=== PATIENT | male | born 1930 | race Caucasian/White ===

== ENCOUNTER → 2016-11-22 | Outpatient (CLI) | payer OTHER | LOC: BHFA 10:15 | PROVIDERS: ATTEND Internal Medicine Interventional Cardiology | DX: I48.91 Unspecified atrial fibrillation (principal); I47.2 Ventricular tachycardia ==

== ENCOUNTER → 2016-12-21 | Outpatient (CLI) | payer OTHER | LOC: BHFA 10:15 | PROVIDERS: ATTEND Internal Medicine Interventional Cardiology | DX: I48.91 Unspecified atrial fibrillation (principal) ==

== ENCOUNTER → 2016-12-31 | Outpatient (CLI) | payer OTHER | LOC: BHFA 10:45 | PROVIDERS: ATTEND Internal Medicine Interventional Cardiology | DX: I48.1 Persistent atrial fibrillation (principal) ==

== ENCOUNTER 2017-01-03 06:57 | Day surgery (SDC) | payer OTHER ==
[2017-01-03] MEDS ORDERED: NS 500 ML IV ONE (07:03)
[2017-01-03] MEDS ORDERED: PROPOFOL 200 MG/20 ML VIAL IVP ONE (07:03)
[2017-01-03] MEDS ORDERED: MIDAZOLAM 2 MG/2 ML VIAL IVP ONE (07:03)
[2017-01-03] MEDS ORDERED: fentaNYL 100 MCG/2 ML INJ IVP ONE (07:03)
--- NOTE | 2017-01-03 07:25 | CPEKG ---
Heart Rate: 97 RR Interval: 619 QRSD Interval: 88 QT Interval: 380 QTC Interval: 483 QRS Stoughton: 18 T Wave Stoughton: 79 EKG Severity - ABNORMAL ECG - EKG Impression: ATRIAL FIBRILLATION -- Probable, but significant artifact interferes with EKG Impression: ability to accurately interpret. EKG Impression: LOW VOLTAGE IN FRONTAL LEADS EKG Impression: BORDERLINE PROLONGED QT INTERVAL Electronically Signed By: Manpreet Montalvo 03-Jan-2017 08:41:18
[2017-01-03 07:54] LABS: APTT 38.8 SEC (23.0-38.0); INR 2.25 (0.83-1.16); PROTIME(PATIENT) 25.1 SEC (12.0-15.0)
[2017-01-03 07:59] LABS: ANION GAP 9 mEq/L (8-16); CARBON DIOXIDE 27 mEq/l (22-31); CHLORIDE 107 mEq/L (97-110); CREATININE 1.3 mg/dL (0.7-1.3); GLOMERULAR FILTRATION RATE 53; GLUCOSE 101 mg/dL (70-100); MAGNESIUM 2.1 mg/dL (1.6-2.3); POTASSIUM 4.4 mEq/L (3.5-5.2); SODIUM 143 mEq/L (134-144)
--- NOTE | 2017-01-03 08:36 | CPEKG ---
Heart Rate: 57 RR Interval: 1053 P-R Interval: 268 QRSD Interval: 76 QT Interval: 452 QTC Interval: 440 P Maynard: 17 QRS Maynard: -39 T Wave Maynard: 59 EKG Severity - ABNORMAL ECG - EKG Impression: SINUS RHYTHM EKG Impression: ATRIAL PREMATURE COMPLEX EKG Impression: FIRST DEGREE AV BLOCK EKG Impression: LEFT AXIS DEVIATION EKG Impression: LOW VOLTAGE IN FRONTAL LEADS EKG Impression: Agree with above. Electronically Signed By: Manpreet Montalvo 03-Jan-2017 08:40:17
--- NOTE | 2017-01-03 10:43 | PDTEE1 ---
DAYSI Cardioversion Procedure Indications: Atrial Fibrillation Consent: Signed and in Chart Anticoagulation: Warfarin Procedural Details: Pads were placed in anterior-posterior position. Synchronized cardioversion attempt #1: 50J Synchronized cardioversion attempt #2: 200J Results: Normal sinus rhythm Conclusions: Successful Cardioversion Conclusion Comment: Succesful cardioversion from atrial fibrillation to sinus rhythm. Plan> Reduce amiodarone to 200 mg po daily. F/U EKG in one week. Continue anticoagulation. Patient Problems: Problems Problem Status Onset Atrial fibrillation Acute
== END 2017-01-03 10:44 | disposition home or self-care (01) ==
LOC: FCATH 06:57
PROVIDERS: ATTEND Internal Medicine Interventional Cardiology
PROC: 5A2204Z Restoration of Cardiac Rhythm, Single (ICD-10-PCS; principal; 2017-01-03)
DX: I48.1 Persistent atrial fibrillation (principal); R60.9 Edema, unspecified; I50.9 Heart failure, unspecified; E03.9 Hypothyroidism, unspecified; I47.2 Ventricular tachycardia; N40.0 Benign prostatic hyperplasia without lower urinary tract symptoms; Z79.01 Long term (current) use of anticoagulants; Z95.2 Presence of prosthetic heart valve
CPT/HCPCS: J2704

== ENCOUNTER → 2017-01-18 | Outpatient (CLI) | payer OTHER | LOC: BHFA 14:15 | PROVIDERS: ATTEND Internal Medicine Interventional Cardiology | DX: I48.91 Unspecified atrial fibrillation (principal) ==

== ENCOUNTER → 2017-03-23 | Outpatient (CLI) | payer OTHER | LOC: BHFA 11:15 | PROVIDERS: ATTEND Internal Medicine Interventional Cardiology | DX: I48.1 Persistent atrial fibrillation (principal); I35.9 Nonrheumatic aortic valve disorder, unspecified ==

== ENCOUNTER → 2017-05-25 | Outpatient (CLI) | payer OTHER | LOC: BHFA 10:45 | PROVIDERS: ATTEND Internal Medicine Interventional Cardiology | DX: I35.9 Nonrheumatic aortic valve disorder, unspecified (principal); I48.91 Unspecified atrial fibrillation; I47.2 Ventricular tachycardia ==

== ENCOUNTER → 2017-09-15 | Outpatient (CLI) | payer OTHER | LOC: FIMAGING 10:24 | PROVIDERS: ATTEND Orthopaedic Surgery | DX: M17.12 Unilateral primary osteoarthritis, left knee (principal); M25.462 Effusion, left knee ==

== ENCOUNTER 2017-09-29 09:15 | Observation (INO) | payer OTHER ==
[2017-09-30] MEDS ORDERED: TRANEXAMIC ACID 3,000 MG in NS 50 ML IRR ONE (08:42)
[2017-09-30] MEDS ORDERED: ROPIVACAINE 0.2% 80 MG, EPINEPHrine 0.2 MG, KETOROLAC TROMETHAMINE 30 MG in SYRINGE 0 ML IU ONE (08:42)
[2017-09-30] MEDS ORDERED: FAMOTIDINE 20 MG TAB PO ONE (08:42)
[2017-09-30] MEDS ORDERED: ACETAMINOPHEN 325 MG TAB PO ONE (08:42)
[2017-09-30] MEDS ORDERED: ceFAZolin 2 GM/SWFI 2 GM/20 ML SYR IVP ONE (08:42)
[2017-09-30] MEDS ORDERED: DEXAMETHASONE 4 MG/ML VIAL IVP ONE (08:42)
[2017-09-30] MEDS ORDERED: VANCOMYCIN 1 GM VIAL ONE (09:09)
[2017-09-30] MEDS ORDERED: LIDOCAINE 1% 2 ML INJ ID PRN (09:15)
[2017-09-30] MEDS ORDERED: LR 1,000 ML IV ONE (09:15)
[2017-09-30 10:24] LABS: INR 1.16 (0.83-1.16)
--- NOTE | 2017-09-30 10:25 | PDHPUP ---
History & Physical Update H&P update statement: This history and physical update is based on an assessment of the patient which was completed after admission or registration (within 24 hours), but prior to the surgery/procedure. H&P update: H&P reviewed & patient examined, no change in patient's condition since H&P completed
--- NOTE | 2017-09-30 10:51 | PDANEPAE ---
ANE History of Present Illness left knee oa ANE Past Medical History - Cardiovascular History Hx Hypertension: No Hx Arrhythmias: Yes Hx Chest Pain: No Hx Coronary Artery / Peripheral Vascular Disease: No Hx CHF / Valvular Disease: Yes Hx Palpitations: No Cardiovascular History Comment: hx of svt. afib. chf. edema. aortic valve disease. hx of AVR - Pulmonary History Hx COPD: No Hx Asthma/Reactive Airway Disease: No Hx Recent Upper Respiratory Infection: No Hx Oxygen in Use at Home: No Hx Sleep Apnea: No Sleep Apnea Screening Result - Last Documented: Negative - Neurologic History Hx Cerebrovascular Accident: Yes Hx Seizures: No Hx Dementia: No - Endocrine History Hx Diabetes: No Endocrine History Comment: hx of hypothyroidism. hx of thyroid nodule resection - Renal History Hx Renal Disorders: Yes Renal History Comment: bph - Liver History Hx Hepatic Disorders: No - Neurological & Psychiatric Hx Hx Neurological and Psychiatric Disorders: No - Cancer History Hx Cancer: Yes Cancer History Comment: prostate. melanoma - Congenital Disorder History Hx Congenital Disorders: No - GI History Hx Gastrointestinal Disorders: No - Other Health History Other Health History: wears reading glasses. wears bilateral hearing aides - Chronic Pain History Chronic Pain: Yes (right hip and left knee) - Surgical History Prior Surgeries: goiter surgery. cardioversion 01/03/17. AVR and aneurysm repair. caridad. appy. tonsillectomy. thyroid nodule resection ANE Review of Systems Review of Systems: - Exercise capacity METS (RN): 3 METS ANE Patient History - Allergies Allergies/Adverse Reactions: nitrofurantoin [From Macrodantin] Allergy (Verified 09/12/17 11:10) Hives - Home Medications Home Medications: Furosemide [Lasix 20 MG (*)] 20 mg PO BID 01/03/17 [Last Taken 09/29/17] Warfarin Sodium [Coumadin 3MG (*)] 3 mg PO SUTUTHSA@16 01/03/17 [Last Taken ] Acetaminophen [Tylenol 325mg (*)] 325 mg PO DAILY PRN 09/05/17 [Last Taken 09/29] Herbals/Supplements -Info Only 1 ea PO DAILY 09/05/17 [Last Taken 09/25/17] Tamsulosin HCl [Flomax 0.4 MG (*)] 0.8 mg PO DAILY 09/05/17 [Last Taken 09/29/17 ] Warfarin Sodium [Coumadin 3MG (*)] 4.5 mg PO MWF@16 09/05/17 [Last Taken ] - NPO status NPO Since - Liquids (Date): 09/29/17 NPO Since - Liquids (Time): 20:00 NPO Since - Solids (Date): 09/29/17 NPO Since - Solids (Time): 20:00 - Smoking Hx Smoking Status: Never smoked - Family Anes Hx Family Hx Anesthesia Complications: none ANE Labs/Vital Signs - Vital Signs Vital Signs: reviewed preoperatively; see RN documention for details Blood Pressure: 133/85 Heart Rate: 73 Respiratory Rate: 16 O2 Sat (%): 92 Height: 185.5 cm Weight: 103.4 kg ANE Physical Exam - Airway Neck exam: FROM Mallampati Score: Class 3 Mouth exam: normal dental/mouth exam - Pulmonary Pulmonary: no respiratory distress - Cardiovascular Cardiovascular: regular rate and rhythym - ASA Status ASA Status: III ANE Anesthesia Plan Anesthesia Plan: GA w LMA, spinal Regional Anesthesia: adductor canal FNB
[2017-09-30] MEDS ORDERED: PROPOFOL/EMULSION 500 MG/50 ML BOTTLE IV ONE (11:14)
[2017-09-30] MEDS ORDERED: ROPIVACAINE HCL 150 MG/30 ML INJ ONE (11:19)
[2017-09-30] MEDS ORDERED: ONDANSETRON 4 MG/2 ML VIAL ONE (11:19)
[2017-09-30] MEDS ORDERED: DEXAMETHASONE 4 MG/ML VIAL ONE ×2 (11:19)
[2017-09-30] MEDS ORDERED: NALOXONE HCL 0.4 MG/ML INJ IVP PRN (12:15)
[2017-09-30] MEDS ORDERED: ONDANSETRON 4 MG/2 ML VIAL IVP PRN ×2 (12:15→12:24)
[2017-09-30] MEDS ORDERED: HYDROmorphONE/DILAUDID 1 MG/ML INJ IVP PRN (12:15)
[2017-09-30] MEDS ORDERED: DEXAMETHASONE 4 MG/ML VIAL IVP PRN (12:15)
[2017-09-30] MEDS ORDERED: fentaNYL 100 MCG/2 ML INJ IVP PRN (12:15)
[2017-09-30] MEDS ORDERED: LACTULOSE 20 GM/30 ML UDCUP PO PRN (12:24)
[2017-09-30] MEDS ORDERED: oxyCODONE IR 5 MG TAB PO PRN (12:24)
[2017-09-30] MEDS ORDERED: PROMETHAZINE HCL 25 MG/ML INJ IVP PRN (12:24)
[2017-09-30] MEDS ORDERED: CYCLOBENZAPRINE 10 MG TAB PO PRN (12:24)
[2017-09-30] MEDS ORDERED: TEMAZEPAM 15 MG CAP PO PRN (12:24)
[2017-09-30] MEDS ORDERED: MAGNESIUM HYDROXIDE 30 ML UDCUP PO PRN (12:24)
[2017-09-30] MEDS ORDERED: METOCLOPRAMIDE 10 MG/2 ML VIAL IVP PRN (12:24)
[2017-09-30] MEDS ORDERED: POLYETHYLENE GLYCOL 3350 17 GM PKT PO PRN (12:24)
[2017-09-30] MEDS ORDERED: diphenhydrAMINE 25 MG CAP PO PRN (12:24)
[2017-09-30] MEDS ORDERED: BISACODYL 10 MG SUPP PR PRN (12:24)
[2017-09-30] MEDS ORDERED: DIPHENOXYLATE/ATROPINE LOMOTIL 1 TAB PO PRN (12:24)
[2017-09-30] MEDS ORDERED: ONDANSETRON DISINTEGRATING 4 MG TAB PO PRN (12:24)
[2017-09-30] MEDS ORDERED: PROMETHAZINE HCL 25 MG SUPPR PR PRN (12:24)
--- NOTE | 2017-09-30 12:29 | POSTOPPROG ---
Post Op Note Date of Operation: 09/30/17 Surgeon: Stefan Orr Director Child Abuse Therapy: leeann orr Anesthesiologist: dr. palacios Anesthesia: Spinal, Other (Specify) (adductor canal block) Pre-op Diagnosis: left knee OA Post-op Diagnosis: same Indication: left knee pain due to OA that failed conservative measures Procedure: L medial partial knee arthroplasty Findings: severe medial knee OA Inf/Abcess present in the surg proc area at time of surgery?: No EBL: 50-100
[2017-09-30] MEDS ORDERED: LR 1,000 ML IV SCH (12:30)
--- NOTE | 2017-09-30 12:40 | POSTANESTH ---
Post Anesthetic Evaluation Cardiovascular Status: Normal, Stable Respiratory Status: Normal, Stable Level of Consciousness/Mental Status: Can Participate in Eval Pain Control: Adequate, Prn Tx Ordered Nausea/Vomiting Control: Adequate, Prn Tx Ordered Complications Possibly Related to Anesthesia: None Noted
--- NOTE | 2017-09-30 15:01 | ASMTCMCOM ---
CM Note CM Note Notes: Spoke w pt and about HHC choice, they were arranged w [facility] by MD office; referral sent in Allscripts. PT eval pending. D/c plan of care: [facility] Date Signed: 09/30/2017 03:01 PM Electronically Signed By:REGULO Rosas
[2017-09-30] MEDS ORDERED: WARFARIN SODIUM 3 MG TAB PO SCH (16:00)
[2017-09-30 16:32] VITALS: RESP 16
[2017-09-30] MEDS: ACETAMINOPHEN 325 MG TAB PO SCH ×2 (18:09→22:57)
[2017-09-30] MEDS: ceFAZolin 2 GM/DEXTROSE 100 ML IV SCH (18:34)
[2017-09-30] MEDS: FAMOTIDINE 20 MG TAB PO SCH (19:45)
[2017-09-30] MEDS: FUROSEMIDE 20 MG TAB PO SCH (19:45)
[2017-09-30] MEDS: SENNOSIDES/DOCUSATE SODIUM TAB PO SCH (19:45)
--- NOTE | 2017-10-01 02:07 | GOP ---
[f rep st] OPERATIVE REPORT DATE OF OPERATION: 09/30/2017 SURGEON: Kimberlee Lynn MD GRADER GREEN MEAT: RADHA Graf. ANESTHESIA: Spinal. PREOPERATIVE DIAGNOSIS: Left knee osteoarthritis. POSTOPERATIVE DIAGNOSIS: Left knee osteoarthritis. PROCEDURE PERFORMED: KORIN left uni-knee, left medial compartment partial knee replacement with compu ter navigation and robotic assist. FINDINGS: ESTIMATED BLOOD LOSS: 30 cc. INDICATIONS: This is an 87-year-old male with progressive pain of the left knee unresponsive to cons ervative care. Risks and benefits of surgical intervention were explained in detail. DESCRIPTION OF PROCEDURE: The patient was brought to the operating room and placed on the table in s upine position. Spinal anesthesia was induced without difficulty. A pneumatic tourniquet was applie d about the left proximal thigh and the leg was prepped and draped in sterile fashion. Attention was turned first to the distal aspect of the left femur. At 3 cm proximal to the lateral rise of the fe mur, 2 percutaneous half pins were placed for fixation of the femoral array. In a similar fashion, 2 pins were placed anterolateral on the tibia for fixation of the tibial array. External land marking and registration of the hip center was performed without difficulty. After exsanguination by elevation, the tourniquet was inflated to 250 mmHg. Incision was made from the tibial tuberosity to the superior pole of the patella. Dissection was car ried out through the subcutaneous tissue to the deep fascia using Bovie electrocautery for hemostasis . Medial parapatellar arthrotomy was carried out to the superior pole of the patella. The medial co llateral ligament was elevated and the infrapatellar fat pad was resected. Internal femoral and tibi al registration was carried out without difficulty and the femoral and tibial checkpoints were placed and verified for accuracy. Attention was turned to the femur. The foot print for the size 6 femoral component was cut with the 6 mm bur using the iKaaz robotic system and verified for accuracy against the CT based plan. The hole was cut for the femoral post. In a similar fashion, the 6 mm bur was used to cut the foot print for t he size 6 tibial component using the iKaaz system and verified for accuracy against the CT based plan. Attention was turned to the posterior aspect of the knee and remnants of the medial meniscus were exc ised. The posterior capsule was injected with ropivacaine, epinephrine and Toradol. Trial reduction was carried out and there was excellent range of motion, alignment and stability using the size 6 fe moral component and the size 6 tibial component, 6 x 9 mm polyethylene. All trials were then removed. The joint was thoroughly irrigated and carefully dried. One package o f cement and 1 gram of vancomycin were mixed in the vacuum mixer and placed on the fixation surfaces of all components. The components were implanted and all excess cement was thoroughly removed. Impla nt placement was verified against the CT view plan and found to be excellent. The tourniquet was deflated and all bleeders were coagulated. The wound was thoroughly irrigated and closed using interrupted sutures of 2-0 Vicryl for the joint capsule. The subcu was closed with 3-0 Vicryl and the skin with 4-0 Monocryl. Dermabond and Steri-Strips were applied, followed by a compr essive dressing. The patient was then moved from the operating room to the recovery room in good con dition, having tolerated the procedure well. PATHOLOGY: Severe medial compartment osteoarthritis. CASE CLASSIFICATION: Clean. /[id number]/MODL
[2017-10-01] MEDS: ceFAZolin 2 GM/DEXTROSE 100 ML IV SCH (02:43)
[2017-10-01] MEDS: ACETAMINOPHEN 325 MG TAB PO SCH (05:44)
[2017-10-01 06:12] LABS: HEMATOCRIT 39.1 % (40.0-51.0); HEMOGLOBIN 12.1 g/dL (13.7-17.5)
[2017-10-01 06:25] LABS: ANION GAP 9 mEq/L (8-16); CALCIUM 8.7 mg/dL (8.5-10.4); CARBON DIOXIDE 27 mEq/l (22-31); CHLORIDE 107 mEq/L (97-110); CREATININE 1.2 mg/dL (0.7-1.3); GLOMERULAR FILTRATION RATE 58; GLUCOSE 128 mg/dL (70-100); POTASSIUM 4.4 mEq/L (3.5-5.2); SODIUM 143 mEq/L (134-144)
[2017-10-01 07:05] LABS: INR 1.16 (0.83-1.16)
[2017-10-01 07:46] VITALS: BP 110/75; TEMP 97.7
[2017-10-01] MEDS ORDERED: TAMSULOSIN HCL 0.4 MG CAP PO SCH (09:00)
[2017-10-01] MEDS ORDERED: ENOXAPARIN 40 MG/0.4 ML SYR SC SCH (09:00)
[2017-10-01] MEDS: FAMOTIDINE 20 MG TAB PO SCH (09:10)
[2017-10-01] MEDS: FUROSEMIDE 20 MG TAB PO SCH (09:10)
[2017-10-01] MEDS: SENNOSIDES/DOCUSATE SODIUM TAB PO SCH (09:10)
--- NOTE | 2017-10-01 10:24 | PDIAF ---
- Diagnosis Diagnosis: s/p left partial knee arthroplasty Code Status: Full Code - Medication Management Discharge Medications: Medications to Continue on Transfer Furosemide [Lasix 20 MG (*)] 20 mg PO BID 01/03/17 [Last Taken 09/29/17] Warfarin Sodium [Coumadin 3MG (*)] 3 mg PO SUTUTHSA@16 01/03/17 [Last Taken ] Acetaminophen [Tylenol 325mg (*)] 325 mg PO DAILY PRN 09/05/17 [Last Taken 09/29] Herbals/Supplements -Info Only 1 ea PO DAILY 09/05/17 [Last Taken 09/25/17] Tamsulosin HCl [Flomax 0.4 MG (*)] 0.8 mg PO DAILY 09/05/17 [Last Taken 09/29/17 ] Warfarin Sodium [Coumadin 3MG (*)] 4.5 mg PO MWF@16 09/05/17 [Last Taken ] Acetaminophen [Tylenol 325mg (*)] 650 mg PO Q6HRS tab 10/01/17 [Last Taken Unknown] Enoxaparin [Lovenox 40 MG (*)] 40 mg SC DAILY syr 10/01/17 [Last Taken Unknown] Sennosides/Docusate Sodium [Senokot-S] 1 - 2 tab PO BID tab 10/01/17 [Last Taken Unknown] oxyCODONE IR [Oxycodone Ir (*)] 5 - 10 mg PO Q3HRS PRN tab 10/01/17 [Last Taken Unknown] Discharge Medications: Refer to the Discharge Home Medication list for PRN reason. - Orders Services needed: Home Care, Registered Nurse, Physical Therapy Home Care Face to Face: I certify that this patient was under my care and that I had the required [id number] encounter meeting the encounter requirements on the discharge day. My findings support the fact that the patient is homebound as defined in Home Care Face to Face Continued: CMS Chapter 7 Medicare Benefits Manual 30.1.1 , The condition of the patient is such that there exists a normal inability to leave home and consequently, leaving home would require a considerable and taxing effort. Diet Recommendation: no restrictions on diet Diet Texture: Regular Texture Diet Additional: Joint Protocol-Knee Replacement. After surgery instructions: Resume home dose of Coumadin by mouth once daily (helps prevent blood clots). Lovenox subcutaneous injection, one injection once daily for 4 days. PT/INR every Tuesday and morning while taking Coumadin, starting the first Tuesday after discharge from the hospital. Wear thigh high FRANK hose on both legs during the daytime for 2 weeks (helps to prevent blood clots and decrease swelling in the surgical leg). It is ok to remove FRANK hose at night time to give your legs a break. It is common for swelling and bruising to occur in the entire surgical leg even extending to the foot, if concerned call Dr. Winters office [phone]. Elevate the surgical leg with the ankle above the hip several times a day. Ideally anytime you are resting throughout the day. Attempt to keep the knee straight while elevating by placing pillows under the ankle instead of the knee to elevate. This may be painful, so please do as much as tolerated. This will help you achieve full knee extension. Use a walker for 7-14 days. Start outpatient physical therapy in 7-10 days. Wear an yazmin wrap on the knee for 3-4 days after surgery, then it is no longer needed. Do exercises in the book 2-3 times a day. Ice at least 3-5 times a day for 30 minutes each time, if not more often. We also recommend using the ice machine before falling asleep to help with pain. If you have further questions that are not addressed here, please look at the information packet handed to you at the preop appointment. Most will be answered on the FAQs, after surgery instructions and incision care pages. You may also call Dr. Florentino office with questions as well. *IF YOU HAVE A LIFE THREATENING EMERGENCY, CALL 911. FOR NON-LIFE THREATENING ISSUES, PLEASE CALL DR. FLORENTINO OFFICE FIRST. A PHYSICIAN IS CARE GIVER 02/05. Incision/Dressing Care: You may shower tomorrow, you do not have to cover your incision dressing as it should be waterproof. Please do not immerse in water, but water running down in it a shower should be ok. Keep the incision (arrington) dressing clean and dry. If the incision dressing gets soiled or wet underneath, change dressing to the dressing given to you by the hospital. (arrington dressing will turn black if drainage occurs). Remove incision dressing (arrington one) two weeks after surgery. Leave steri strips alone. They will fall off on their own. Do not have anyone else remove the incision dressing prior to the stated recommendation (2 weeks after surgery). If there are incision concerns, contact Dr. Winters office. (Ivonne or Dr. Lynn may remove earlier if concerns arise). If incision site (arrington dressing) has drainage, call Dr. Winters office, . Ivonne and Dr. Lynn may ask you to come into the office for further evaluation - Labs/Radiology PT/INR Date: 10/04/17 (every Tuesday morning and morning for 3 weeks postop. (first draw can be 10/04/17 instead of Tuesday). Call Dr. Lynn's office with results [phone]) - Follow Up Care Current Providers and Referrals: Rita Smith MD [Primary Care Provider] - Ivonne Lynn PA [Physician Product Safety Technician] - 10/20/17 9:45 am
--- NOTE | 2017-10-01 10:25 | PDFACE2FAC ---
Face to Face Encounter 1. I certify that this patient is under my care and that I, or a nurse practitioner or physician's compounding assistant working with me, had a [id number] encounter that meets the physician keux-[id number] encounter requirements with this patient on 10/01/17. 2. I certify that based on my findings, the following services are medically necessary home health services: [X Nursing] [X Physical Therapy] [ Speech-Language Pathology] 3. The medical condition and clinical findings that support the need for specialized skills, knowledge and judgement of the above services are: [patient is on intermodal customer service anticoagulant therapy and will need bloodwork twice a week to monitor level closely postoperatively. Patient cannot drive as he is s/p Left partial knee arthroplasty] 4. I certify this patient is homebound* because [the patient's condition restricts their ability to leave their home except with the assistance of another individual or the aid of a supportive device.] s/p L partial knee arthroplasty and should not drive for several weeks postop I certify that this patient is confined to his/her home and needs intermittent residential care, physical and/or speech therapy. This patient is under my care and I have authorized home health services. * Homebound is defined by Medicare as follows: absences from home require considerable and tacking effort and or for medical reasons or denominational services or are infrequent or of short duration when for other reasons*.
--- NOTE | 2017-10-01 10:53 | SOAPPROG ---
SOAP Progress Note Assessment/Plan: Assessment: Pt is doing well POD 1 s/p L PKA pain is well controlled on oxycodone anemia: level expectedi nitially postop VTE ppx: recommend resuming coumadin D/c planning: d/c to home today with home care Plan: 10/01/17 10:53 Objective: Vital Signs Temp Pulse Resp BP Pulse Ox 36.5 C 82 16 110/75 92 10/01/17 07:44 10/01/17 07:44 10/01/17 07:44 10/01/17 07:44 10/01/17 07:44 Laboratory Results 10/01/17 06:00 10/01/17 06:00 09/30/17 10/01/17 10/02/17 05:59 05:59 05:59 Intake Total 1740 100 Output Total 1455 Balance 285 100 PT 15.0 SEC (12.0-15.0) 10/01/17 06:00 INR 1.16 (0.83-1.16) 10/01/17 06:00 ICD10 Worksheet Patient Problems: Problems Problem Status Onset Primary localized osteoarthritis of left knee Acute Atrial fibrillation Acute
--- NOTE | 2017-10-01 11:10 | ASDISCHSUM ---
Discharge Information Plan Status:Home with Home Health Medically Cleared to Leave:09/30/2017 Discharge Date:09/30/2017 D/C Disposition:Home Health Service ADT D/C Disposition:Home, Routine, Self-Care Projected Discharge Date:10/01/2017 11:00 AM Transportation at D/C:Family Discharge Delay Reason: Follow-Up Date:10/01/2017 11:00 AM Discharge Slot: Final Diagnosis: Placement Information Referral Type:*Home Health Care Services Referral ID:[id number] Provider Name:[facility] Address 1:[address] Address 2: City:[place] Selection Factors: State:[place] Patient Contact Information Contact Name:PONCE Relationship: Address:[address] Work Phone: [facility]:[place] Alternate Phone: [facility]/Zip Code:[place] [address] Email: Financial Information Financial Class: Primary Plan Desc:MEDICARE OUTPATIENT Primary Plan Number:[id number] Secondary Plan Desc:[facility] Secondary Plan Number:[id number] Assessment Information 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 His son works in the 'adult care business', but Chino' would like home health care services for 1 week after surgery. His stated she has already spoken with Dr. Lynn about these arrangements. Date Signed: 09/23/2017 09:18 AM Electronically Signed By:Dayna Nazario [facility] Progress Note CM Note CM Note Notes: Spoke w pt and about [facility] choice, they were arranged w [facility] by MD office; referral sent in Allscripts. PT eval pending. D/c plan of care: [facility] Date Signed: 09/30/2017 03:01 PM Electronically Signed By:REGULO Rosas Intervention Information Intervention Type:*Incorrect Registration Date of Service:09/30/2017 12:36 PM Patient Type:Inpatient Staff Member:NEVIN Sneed, Lesley Hours: Discipline: Severity: Comment:
[2017-10-01 11:31] VITALS: PULSE 69; O2SAT 94
[2017-10-01] MEDS ORDERED: WARFARIN SODIUM 3 MG TAB PO SCH (16:00)
== END 2017-10-01 12:07 | disposition home or self-care (01) ==
LOC: INTOOBSV 09-30 08:38 → F3E 09-30 08:38 → F3N 09-30 13:55
PROVIDERS: ADMIT Orthopaedic Surgery; ATTEND Orthopaedic Surgery
PROC: 0SRD0JZ Replacement of Left Knee Joint with Synthetic Substitute, Open Approach (ICD-10-PCS; principal; 2017-09-30 11:15)
PROC: 8E0YXBG Computer Assisted Procedure of Lower Extremity, With Computerized Tomography (ICD-10-PCS; principal; 2017-09-30 11:15)
PROC: 8E0Y0CZ Robotic Assisted Procedure of Lower Extremity, Open Approach (ICD-10-PCS; principal; 2017-09-30 11:15)
DX: M17.12 Unilateral primary osteoarthritis, left knee (principal); I48.91 Unspecified atrial fibrillation; I50.9 Heart failure, unspecified; N40.0 Benign prostatic hyperplasia without lower urinary tract symptoms; Z79.01 Long term (current) use of anticoagulants; Z95.2 Presence of prosthetic heart valve
CPT/HCPCS: 27446; 73560; 97116; 97161; 97165; C1713; C1776; G8978; G8979; G8980; G8987; G8988; G8989; J0171; J0690; J1100; J1650; J1885; J2405; J2704; J2795; J3370

== ENCOUNTER → 2018-04-13 | Outpatient (CLI) | payer OTHER | LOC: BHFA 09:00 | PROVIDERS: ATTEND Internal Medicine Cardiovascular Disease | DX: I47.2 Ventricular tachycardia (principal); I50.9 Heart failure, unspecified; I35.9 Nonrheumatic aortic valve disorder, unspecified | CPT/HCPCS: 78452; 93017; A9500; J2785 ==

== ENCOUNTER → 2018-04-25 | Outpatient (CLI) | payer OTHER | LOC: BHFA 10:45 | PROVIDERS: ATTEND Internal Medicine Cardiovascular Disease | DX: Z95.2 Presence of prosthetic heart valve (principal) ==

== ENCOUNTER → 2018-09-14 | Outpatient (CLI) | payer OTHER | LOC: FIMAGING 15:40 | PROVIDERS: ATTEND Internal Medicine | DX: G31.9 Degenerative disease of nervous system, unspecified (principal); I67.82 Cerebral ischemia ==

== ENCOUNTER → 2018-11-01 | Outpatient (CLI) | payer OTHER | LOC: BHFA 14:15 | PROVIDERS: ATTEND Nurse Practitioner Adult Health | DX: I48.91 Unspecified atrial fibrillation (principal); I50.9 Heart failure, unspecified; I63.9 Cerebral infarction, unspecified; I35.9 Nonrheumatic aortic valve disorder, unspecified ==

== ENCOUNTER → 2019-02-05 | Outpatient (CLI) | payer OTHER | LOC: FIMAGING 11:02 | PROVIDERS: ATTEND Nurse Practitioner Adult Health | DX: M79.605 Pain in left leg (principal); R60.9 Edema, unspecified ==

== ENCOUNTER → 2019-02-13 | Outpatient (CLI) | payer OTHER | LOC: FIMAGING 12:19 | PROVIDERS: ATTEND Internal Medicine | DX: E07.9 Disorder of thyroid, unspecified (principal); E89.0 Postprocedural hypothyroidism ==